=== PATIENT | male | born 1955 | race Caucasian/White ===

== ENCOUNTER 2024-03-09 06:16 | Day surgery (SDC) | payer MEDICARE, OTHER, SELFPAY ==
[2024-02-25 06:34] VITALS: BMI 33.8
[2024-03-09] VITALS (8 sets, daily range): BP systolic 108–154; BP diastolic 55–83; BMI 33.8
[2024-03-09] MEDS: NORMOSOL-R 1000 IV (07:06)
[2024-03-09 07:07] LABS: Glucose - Point of Care 224 mg/dl (70-99)
[2024-03-09] MEDS: NOVOLOG vial 2 UNITS SC ×2 (07:17→09:14)
--- NOTE | 2024-03-09 08:57 | W.SUR.POST ---
Surgical Immediate Post Op
Note
Pre Op Diagnosis: bph obstructio
Post Op Diagnosis: same
Procedure Performed: TURP
Primary Surgeon: Nabeel
Secondary Surgeons:
Anesthesia: gea
Estimated Blood Loss: 20cc
Fluids: nss
Drains/[id number] fr [address] mckenzie:
Specimens/Cultures: t chips
Doppler/Duplex/Angio (Y/N):
Complications: 0
Operative Findings: lg prostae chronic obstruction
[2024-03-09 09:05] LABS: Glucose - Point of Care 236 mg/dl (70-99)
[2024-03-09] MEDS: DETROL LA 4 MG PO (09:41)
[2024-03-09] MEDS: LEVAQUIN 100 IV (10:00)
[2024-03-09] MEDS: COLACE 100 MG PO ×2 (10:42→16:55)
--- NOTE | 2024-03-09 10:58 | W.PN.URO.CBU ---
Today's Communication / Plan
-
try and wean hahn[wn cbi by am wednesday
Assessment / Plan
-
post op turp stab;le serial h/h cbi
Diagnosis
-
Date of Service: March 09, 2024
-
Patient Diagnosis:
bph obstruction
Post Op Day:
Subjective
-
pressure no fevr
Objective
-
Vital Signs
Temp Pulse Resp BP Pulse Ox
97.3 F 72 19 142/74 96
03/09/24 10:20 03/09/24 10:20 03/09/24 10:20 03/09/24 10:20 03/09/24 10:20
Intake and Output
03/08/24 03/09/24 03/10/24
06:59 06:59 06:59
Intake Total 250 / 250
Output Total 700 / 700
Balance -450 / -450
Intake:
IV fluids (Total) 200 / 200
Normosal 200 / 200
IV piggybacks 50 / 50
Output:
True Urine Output from CBI 700 / 700
Review of Systems
-
: Dark Urine
Physical Exam
-
General - well developed, well nourished, no acute distress
Chest - clear bilaterally
Abdomen - soft, non-tender, positive bowel sounds, no CVAT, no incisional pain or distention
Genitalia - normal
Rectal - normal
Skin - warm & dry with no rash
Neuro - AOx3, no motor deficits
Extremities - no clubbing, no cyanosis, no edema
Incision - clean, dry
Dressing - clean, dry, intact
Care Review
Data Reviewed
Discussed with: Nursing
[2024-03-09 11:46] LABS: Glucose - Point of Care 273 mg/dl (70-99)
[2024-03-09] MEDS: ACTOS 30 MG PO (16:56)
[2024-03-09] MEDS: GLUCOPHAGE XR EXTENDED RELEASE 1000 MG PO (16:56)
[2024-03-09] MEDS: AMARYL 4 MG PO (16:56)
[2024-03-09] MEDS: PROSCAR 5 MG PO (16:57)
[2024-03-09] MEDS: ZESTRIL 10 MG PO (16:57)
[2024-03-09] MEDS: LIPITOR 20 MG PO (16:57)
[2024-03-09 17:11] LABS: Glucose - Point of Care 332 mg/dl (70-99)
[2024-03-09 21:37] LABS: Glucose - Point of Care 178 mg/dl (70-99)
[2024-03-10 03:02] VITALS: BP 102/56
[2024-03-10 06:47] LABS: Hematocrit 39.2 % (39.0-52.0); Hemoglobin 13.3 g/dL (13.0-18.0)
[2024-03-10] MEDS: GLUCOPHAGE XR EXTENDED RELEASE 1000 MG PO ×2 (07:20→16:01)
[2024-03-10] MEDS: JARDIANCE 25 MG PO (07:21)
[2024-03-10] MEDS: COLACE 100 MG PO (07:21)
[2024-03-10 07:28] VITALS: BP 118/66
[2024-03-10 08:15] LABS: Glucose - Point of Care 187 mg/dl (70-99)
[2024-03-10] MEDS: LEVAQUIN 100 IV (09:59)
[2024-03-10] MEDS: COLACE PO ×2 (10:06→16:02)
--- NOTE | 2024-03-10 11:54 | CM ---
Reviewed the chart notes. The patient resides with spouse in a two story home with no steps to enter. Reports no DME/VN/SNF in past. CM continues to be available to patient/family and is monitoring medical plan for needs at discharge.
Plan: Discharge to home when medically stable. No anticipated needs being identified at this time.
--- NOTE | 2024-03-10 12:44 | W.PN.URO.CBU ---
Today's Communication / Plan
-
stop b]=cbi am sat 0600 encourage fluids in=f no major clots mckenzie put 0800
Assessment / Plan
-
post op turp stab;le cbi weaning plan if stabkle home sat after voiding trial
Diagnosis
-
Date of Service: March 10, 2024
-
Patient Diagnosis:
Post Op Day: 1 bph s/p turp
Patient Diagnosis:
bph obstruction
Post Op Day:
Subjective
-
asx
Objective
-
Vital Signs
Temp Pulse Resp BP Pulse Ox
98.1 F 71 19 118/66 95
03/10/24 07:28 03/10/24 07:28 03/10/24 07:28 03/10/24 07:28 03/10/24 07:28
Intake and Output
03/09/24 03/10/24 03/11/24
06:59 06:59 06:59
Intake Total 1450 / 1450 960 / 960
Output Total 44141 / 93644 4000 / 4000
Balance -9650 / -9650 -3040 / -3040
Intake:
Oral fluids 1200 / 1200 960 / 960
IV fluids (Total) 200 / 200
Normosal 200 / 200
IV piggybacks 50 / 50
Output:
True Urine Output from CBI 70648 / 51994 4000 / 4000
Laboratory Results
03/10/24 06:01
Review of Systems
-
: Dark Urine
Physical Exam
-
General - well developed, well nourished, no acute distress
Chest - clear bilaterally
Abdomen - soft, non-tender, positive bowel sounds, no CVAT, no incisional pain or distention
Genitalia - normal
Rectal - normal
Skin - warm & dry with no rash
Neuro - AOx3, no motor deficits
Extremities - no clubbing, no cyanosis, no edema
Incision - clean, dry
Dressing - clean, dry, intact
Care Review
Data Reviewed
Discussed with: Nursing
[2024-03-10 13:05] LABS: Glucose - Point of Care 182 mg/dl (70-99)
[2024-03-10 15:34] VITALS: BP 113/66
[2024-03-10] MEDS: AMARYL 4 MG PO (16:00)
[2024-03-10] MEDS: ACTOS 30 MG PO (16:00)
[2024-03-10] MEDS: ZESTRIL 10 MG PO (17:21)
[2024-03-10] MEDS: PROSCAR 5 MG PO (17:21)
[2024-03-10] MEDS: LIPITOR 20 MG PO (17:21)
[2024-03-10 17:29] LABS: Glucose - Point of Care 170 mg/dl (70-99)
[2024-03-10 21:48] LABS: Glucose - Point of Care 193 mg/dl (70-99)
[2024-03-10 23:00] VITALS: BP 95/63
--- NOTE | 2024-03-11 06:16 | PTCARENOTE ---
Pt urine has been [place] without any clots. It was clamp at 0615.
[2024-03-11 07:31] LABS: Glucose - Point of Care 183 mg/dl (70-99)
[2024-03-11] MEDS: GLUCOPHAGE XR EXTENDED RELEASE 1000 MG PO (07:31)
[2024-03-11] MEDS: COLACE 100 MG PO (07:32)
[2024-03-11] MEDS: JARDIANCE 25 MG PO (07:32)
[2024-03-11 07:56] VITALS: BP 99/60
[2024-03-11] MEDS: LEVAQUIN 100 IV (10:10)
[2024-03-11] MEDS: COLACE PO (10:20)
--- NOTE | 2024-03-11 10:38 | W.PN.URO.CBU ---
Today's Communication / Plan
-
Discharge planning
Assessment / Plan
-
Post op TURP
Stable minimal hematuria off CBI and mckenzie removed
Trial of void today
Discharge
Diagnosis
-
Date of Service: March 11, 2024
-
Patient Diagnosis:
Post Op Day: 2 bph s/p turp
Patient Diagnosis:
bph obstruction
Post Op Day:
Subjective
-
Feeling well
voided once with mckenzie out, no clots
Objective
-
Vital Signs
Temp Pulse Resp BP Pulse Ox
97.8 F 77 16 99/60 97
03/11/24 07:56 03/11/24 07:56 03/11/24 07:56 03/11/24 07:56 03/11/24 07:56
Intake and Output
03/10/24 03/11/24 03/12/24
06:59 06:59 06:59
Intake Total 1450 / 1450 2220 / 2220
Output Total 31684 / 17606 2550 / 2550
Balance -9650 / -9650 -330 / -330
Intake:
Oral fluids 1200 / 1200 2220 / 2220
IV fluids (Total) 200 / 200
Normosal 200 / 200
IV piggybacks 50 / 50
Output:
True Urine Output from CBI 61335 / 74273 2550 / 2550
Laboratory Results
03/10/24 06:01
Physical Exam
-
General - well developed, well nourished, no acute distress
Chest - clear
Abdomen - soft, non-tender
Skin - warm & dry with no rash
--- NOTE | 2024-03-11 10:42 | W.DS.TRANS ---
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
-
Discharge Instructions:
Sleep Apnea Risk Intermediate
Discharge Diagnosis/Procedures enlarged prostate with obstruction
Diet No restrictions
Activity As tolerated
Driving Restrictions As prior to admission
Bathing Restrictions None
Instructions:
Stand-Alone Forms:
Changes to Home Medications: No
Discharge Medications:
DC Medications w/original date entered in [employer]
atorvastatin 20 mg tablet (Lipitor) 20 mg PO QPM High Cholesterol 02/24/23
finasteride 5 mg tablet 5 mg PO QPM Urinary Issue 02/24/23
glimepiride 4 mg tablet 4 mg PO DAILY@1700 Diabetes 02/24/23
ibuprofen 200 mg tablet 400 mg PO Q6HPRN PRN mild pain 02/24/23
lisinopril 10 mg tablet 10 mg PO QPM Blood Pressure 02/24/23
metformin 500 mg tablet,extended release 24hr (osmotic) 1,000 mg PO BID@0800,1700 Diabetes 02/24/23
pioglitazone 30 mg tablet (Actos) 30 mg PO DAILY@1700 Diabetes 02/24/23
empagliflozin 25 mg tablet (Jardiance) 25 mg PO DAILY DIABETES 03/07/24
ciprofloxacin HCl 500 mg tablet 500 mg PO BID 5 days #10 tabs 03/11/24
Home Medication Changes
Pending Results: No
Total time spent discharging patient (in min): 35
--- NOTE | 2024-03-11 11:43 | CM ---
Patient has been medically cleared for discharge to home with no additional skilled services. Patient has arranged for transport home.
== END 2024-03-11 16:22 | disposition home or self-care (01) ==
LOC: SDS 06:16
PROVIDERS: ATTENDING PHYSICIAN Specialist
DX: N40.1 Benign prostatic hyperplasia with lower urinary tract symptoms (principal); R39.15 Urgency of urination; N13.8 Other obstructive and reflux uropathy; R33.8 Other retention of urine
CPT/HCPCS: 52601; 88305; 82962; 85014; 85018; 88344

== ENCOUNTER → 2024-07-12 12:53 | Outpatient (REF) | payer MEDICARE, OTHER, SELFPAY ==
--- NOTE | 2024-07-12 14:42 | PN.DE ---
Diabetes Education
- -
07/12/2024 Diabetes Education/Management Consult
Patient referred by Dr. Mirza Landrum for uncontrolled diabetes on max oral medication. Currently taking Jardiance 25 mg daily metformin 1000 mg BID, glipepiride 4 mg daily and pioglitazone 30 mg daily. A1C 10.
Patient has attended outpatient diabetes classes in the past. Feels he is 69 and does not want to change his diet. 'the medicine will control it'. Patient has a contour glucose monitor with strips and lancets.
I reviewed the importance of eating a consistent amount of cho at each meal 30 grams with breakfast 45 with lunch and dinner and 15 grams for evening snack. He is agreeable.
Instructed on action of lantus and novolog and instructed on use of prefilled pens. Good return demonstration. Provided printed instruction with step by step pictures for home use. To start 16 units lantus @ hs and novolog 4 units with breakfast
6 units with lunch and dinner. He will record his blood sugars before each meal and hs and call them in to our office for further adjustments.
== END ==
LOC: DES 12:53
PROVIDERS: ATTENDING PHYSICIAN Family Medicine
DX: E11.65 Type 2 diabetes mellitus with hyperglycemia (principal)
CPT/HCPCS: 99078